=== PATIENT | female | born 2000 ===

== ENCOUNTER 2023-03-05 11:14 | Outpatient (AMB) | payer OTHER, SELFPAY ==
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
[2023-03-05 11:23] VITALS: BP 106/64; BMI 40.4
== END 2023-03-05 12:11 | disposition home or self-care (01) ==
LOC: HO.HWS 11:14
PROVIDERS: PCP Internal Medicine; Visit Provider Advanced Practice Midwife
DX: Z01.419 Encounter for gynecological examination (general) (routine) without abnormal findings (principal); Z87.898 Personal history of other specified conditions
CPT/HCPCS: 99385

== ENCOUNTER 2023-03-05 11:14 | Outpatient (REF) | payer OTHER, SELFPAY ==
[2023-03-05 16:34] LABS: CT PCR NOT DETECTED (Not Detect.); NG PCR NOT DETECTED (Not Detect.)
[2023-03-06 13:21] LABS: BV Int Neg Control Negative (Negative); BV Int Pos Control Positive (Positive)
== END 2023-03-05 11:15 | disposition home or self-care (01) ==
LOC: HO.LNP 11:14
PROVIDERS: PCP Internal Medicine; Visit Provider Advanced Practice Midwife
DX: Z01.419 Encounter for gynecological examination (general) (routine) without abnormal findings (principal); T74.31XA Adult psychological abuse, confirmed, initial encounter; Z20.2 Contact with and (suspected) exposure to infections with a predominantly sexual mode of transmission; Z87.898 Personal history of other specified conditions; Z90.49 Acquired absence of other specified parts of digestive tract; Z87.59 Personal history of other complications of pregnancy, childbirth and the puerperium
CPT/HCPCS: 0353U; 87480; 87510; 87660; 88142